=== PATIENT | female | born 1985 | race Caucasian/White ===

== ENCOUNTER 2018-11-27 23:46 | Emergency (ER) | payer BC ==
[~2018-11-27] VITALS: Ht 165.1 cm; Wt 92.4 kg
[~2018-11-27 23:46] MED LIST: MED4DP PO; MELO7.5O PO
[2018-11-27 23:55] VITALS: BP 132/83; PULSE 97; RESP 16; Ht 165.1 cm; Wt 92.4 kg
[2018-11-28] MEDS ORDERED: KETOROLAC 60 MG INJ IM STA (00:36)
[2018-11-28] MEDS ORDERED: METHYLPREDNISOLONE 125 MG INJ IM ONE (01:00)
== END 2018-11-28 01:23 | disposition home or self-care (01) ==
LOC: FTE 23:46
DX: M79.671 Pain in right foot (principal); F17.210 Nicotine dependence, cigarettes, uncomplicated; M79.672 Pain in left foot
CPT/HCPCS: 81025; 96372; 99284; J1885; J2930